=== PATIENT | male | born 1965 | race Two or more races ===

== ENCOUNTER 2017-11-28 14:04 | Inpatient (IN) | payer MEDICAID ==
[2017-11-28] VITALS (7 sets, daily range): BP systolic 111–139; BP diastolic 64–88
[~2017-11-28] VITALS: Ht 165.1 cm; Wt 64.0 kg
[2017-11-28] MEDS ORDERED: Thiamine HCl 100 MG in D5W 55 ML IVPB SCH (14:15)
[2017-11-28] MEDS ORDERED: HydrOXYzine tab 25 MG TAB ORAL ONE (14:15)
--- NOTE | 2017-11-28 14:17 | Emergency Room Report ---
History of Present Illness General Chief Complaint: General Complaint Source: Patient, EMS Present Illness HPI Patient is a 52-year-old male brought in by EMS after increased generalized weakness. Patient reports having several alcoholic drinks every day. The patient was found lying in the street. Patient stated that he had increased spinning sensation. He denies vomiting. He reports having generalized body itchiness. Allergies: Coded Allergies: No Known Allergies (Unverified , 11/28/17) Patient History Reviewed Nursing Documentation: PMH: Agreed; PSxH: Agreed Review of Systems All Other Systems: limited - by poor historian Physical Exam Vital Signs Date Time Temp Pulse Resp B/P (MAP) Pulse Ox O2 Delivery O2 Flow Rate FiO2 11/28/17 14:00 98.3 90 18 102/51 98 Room Air 98.2 Sp02 EP Interpretation: reviewed, normal General Appearance: normal inspection, well appearing, no apparent distress, alert, Chronically Ill Head: atraumatic ENT: normal ENT inspection, hearing grossly normal, normal voice Neck: normal inspection, full range of motion, supple, no bony tend Respiratory: normal inspection, lungs clear, normal breath sounds, no respiratory distress, no retraction, no wheezing Cardiovascular #1: regular rate, rhythm, no edema Gastrointestinal: normal inspection, normal bowel sounds, non tender, soft, no guarding, no hernia Genitourinary: no CVA tenderness Musculoskeletal: normal inspection, back normal, normal range of motion Neurologic: normal inspection, alert, responsive, speech normal Psychiatric: normal inspection, judgement/insight normal, mood/affect normal Skin: other - generalized excoriations Medical Decision Making Diagnostic Impression: Primary Impression: Generalized weakness Additional Impressions: Alcohol abuse Dermatitis ER Course Patient presented for generalized weakness. Differential diagnosis included was not limited to anemia, urinary tract infection, electrolyte abnormality, hypothyroidism, myocardial infarction, myasthenia gravis, dehydration, among others. Because of complexity of patient's case laboratory testing and imaging studies were ordered. The patient was given IV thiamine as well as Atarax for itching.The patient noted have markedly elevated blood alcohol level.Laboratory testing is notable for severe anemia. The patient is also noted to be thrombocytopenic as well as leukopenic.The patient's blood alcohol was noted to be markedly elevated. Patient was consented for blood due to severe anemia. Dr. Zach Silver was contacted for inpatient management Labs Test 11/28/17 15:00 White Blood Count 4.7 K/UL (4.8-10.8) Red Blood Count 2.68 M/UL (4.70-6.10) Hemoglobin 6.8 G/DL (14.2-18.0) Hematocrit 21.6 % (42.0-52.0) Mean Corpuscular Volume 81 FL (80-99) Mean Corpuscular Hemoglobin 25.5 PG (27.0-31.0) Mean Corpuscular Hemoglobin Concent 31.6 G/DL (32.0-36.0) Red Cell Distribution Width 18.2 % (11.6-14.8) Platelet Count 48 K/UL (150-450) Mean Platelet Volume 6.7 FL (6.5-10.1) Neutrophils (%) (Auto) % (45.0-75.0) Lymphocytes (%) (Auto) % (20.0-45.0) Monocytes (%) (Auto) % (1.0-10.0) Eosinophils (%) (Auto) % (0.0-3.0) Basophils (%) (Auto) % (0.0-2.0) Sodium Level 139 MMOL/L (136-145) Potassium Level 3.2 MMOL/L (3.5-5.1) Chloride Level 103 MMOL/L (98-107) Carbon Dioxide Level 24 MMOL/L (21-32) Anion Gap 12 mmol/L (5-15) Blood Urea Nitrogen 6 mg/dL (7-18) Creatinine 0.5 MG/DL (0.55-1.30) Estimat Glomerular Filtration Rate > 60 mL/min (>60) Glucose Level 107 MG/DL (74-106) Calcium Level 7.7 MG/DL (8.5-10.1) Total Bilirubin 0.7 MG/DL (0.2-1.0) Aspartate Amino Transf (AST/SGOT) 72 U/L (15-37) Alanine Aminotransferase (ALT/SGPT) 30 U/L (12-78) Alkaline Phosphatase 238 U/L (46-116) Total Protein 8.0 G/DL (6.4-8.2) Albumin 2.8 G/DL (3.4-5.0) Globulin 5.2 g/dL Albumin/Globulin Ratio 0.5 (1.0-2.7) Serum Alcohol 425 mg/dL EKG Diagnostic Results Rate: normal Rhythm: NSR ST Segments: no acute changes Last Vital Signs Date Time Temp Pulse Resp B/P (MAP) Pulse Ox O2 Delivery O2 Flow Rate FiO2 11/28/17 14:00 98.3 90 18 102/51 98 Room Air 98.2 Status: unchanged Disposition: ADMITTED INPATIENT Condition: Serious Enrico Wellington Nov 28, 2017 14:17
[2017-11-28 15:23] LABS: HEMATOCRIT 21.6 % (42.0-52.0); MEAN CORPUSCULAR VOLUME 81 FL (80-99); PLATELET COUNT 48 K/UL (150-450); RED BLOOD COUNT 2.68 M/UL (4.70-6.10); RED CELL DISTRIBUTION WIDTH 18.2 % (11.6-14.8); WHITE BLOOD COUNT 4.7 K/UL (4.8-10.8)
[2017-11-28 15:33] LABS: ANION GAP 12 mmol/L (5-15); BLOOD UREA NITROGEN 6 mg/dL (7-18); CALCIUM 7.7 MG/DL (8.5-10.1); CARBON DIOXIDE 24 MMOL/L (21-32); CHLORIDE 103 MMOL/L (98-107); CREATININE 0.5 MG/DL (0.55-1.30); POTASSIUM 3.2 MMOL/L (3.5-5.1); SODIUM 139 MMOL/L (136-145)
[2017-11-28 15:37] LABS: HEMOGLOBIN 6.8 G/DL (14.2-18.0)
[2017-11-28 15:39] LABS: ALANINE AMINOTRANSFERASE 30 U/L (12-78); ALBUMIN 2.8 G/DL (3.4-5.0); ALBUMIN/GLOBULIN RATIO 0.5 (1.0-2.7); ALKALINE PHOSPHATASE 238 U/L (46-116); ASPARTATE AMINO TRANSFERASE 72 U/L (15-37); BILIRUBIN,TOTAL 0.7 MG/DL (0.2-1.0)
[2017-11-28 16:11] LABS: HEMATOCRIT 21.9 % (42.0-52.0); MEAN CORPUSCULAR VOLUME 81 FL (80-99); PLATELET COUNT 47 K/UL (150-450); RED CELL DISTRIBUTION WIDTH 17.8 % (11.6-14.8)
[2017-11-28 16:42] LABS: HEMOGLOBIN 6.9 G/DL (14.2-18.0)
[2017-11-28] MEDS ORDERED: Morphine Sulfate 4mg/ml Inj IVP PRN (19:30)
[2017-11-28] MEDS ORDERED: Zolpidem 5mg tab ORAL PRN (19:30)
[2017-11-28] MEDS ORDERED: Mylanta II UD 30ml ORAL PRN (19:30)
[2017-11-28] MEDS ORDERED: Miralax 17gm pkt ORAL PRN (19:30)
[2017-11-28] MEDS: Heparin 5000 units/ml inj SUBQ SCH (21:00)
[2017-11-28] MEDS: Folic Acid 1 MG, Magnesium Sulfate 2,000 MG, Multivitamin - 12 Injection 10 ML in NS w/... IV SCH (21:40)
[2017-11-29] VITALS (7 sets, daily range): BP systolic 127–139; BP diastolic 71–83
[2017-11-29] MEDS: chlordiazePOXIDE 25mg Cap ORAL PRN (00:09)
--- NOTE | 2017-11-29 08:39 | Diagnostic Imaging Report ---
Indications: Altered mental status Technique: Spiral acquisitions obtained through the brain. Angled axial and coronal 5 x 5 mm slices were reconstructed. Total dose length product 1503.21 mGycm. CTDI vol(s) 70.38 mGy. Dose reduction achieved using automated exposure control Comparison: None. Findings: There is marked cerebral volume loss in the frontal regions bilaterally as well as in the posterior fossa. No acute intracranial hemorrhage or edema no mass effect or midline shift. Normal barclay-white differentiation. There is fairly extensive bilateral ethmoid sinus disease. Intact calvarium. Visualized orbits are unremarkable. Impression: Bifrontal cerebral and cerebellar volume loss, disproportionate to age Negative for acute intracranial bleed or mass effect Sinus disease This agrees with the preliminary interpretation provided overnight by [facility] teleradiology service. The CT scanner at [facility] is accredited by the [employer] and the scans are performed using protocols designed to limit radiation exposure to as low as reasonably achievable to attain images of sufficient resolution adequate for diagnostic evaluation.
[2017-11-29] MEDS: Heparin 5000 units/ml inj SUBQ SCH ×2 (09:00→20:50)
[2017-11-29 09:05] LABS: HEMATOCRIT 26.4 % (42.0-52.0); HEMOGLOBIN 8.6 G/DL (14.2-18.0); MEAN CORPUSCULAR VOLUME 83 FL (80-99); PLATELET COUNT 42 K/UL (150-450); RED BLOOD COUNT 3.18 M/UL (4.70-6.10); RED CELL DISTRIBUTION WIDTH 16.6 % (11.6-14.8); WHITE BLOOD COUNT 3.8 K/UL (4.8-10.8)
[2017-11-29 09:23] LABS: ALANINE AMINOTRANSFERASE 29 U/L (12-78); ALBUMIN 2.9 G/DL (3.4-5.0); ALBUMIN/GLOBULIN RATIO 0.5 (1.0-2.7); ALKALINE PHOSPHATASE 227 U/L (46-116); ANION GAP 9 mmol/L (5-15); ASPARTATE AMINO TRANSFERASE 69 U/L (15-37); BILIRUBIN,TOTAL 1.3 MG/DL (0.2-1.0); BLOOD UREA NITROGEN 5 mg/dL (7-18); CARBON DIOXIDE 26 MMOL/L (21-32); CHLORIDE 103 MMOL/L (98-107); CREATININE 0.5 MG/DL (0.55-1.30); POTASSIUM 3.2 MMOL/L (3.5-5.1); SODIUM 138 MMOL/L (136-145)
[2017-11-29 09:24] LABS: BILIRUBIN,DIRECT 0.5 MG/DL (0.0-0.3)
--- NOTE | 2017-11-29 12:00 | Consultation ---
History of Present Illness General Date patient seen: Nov 29, 2017 Chief Complaint: General Complaint Present Illness HPI 52-year-old male brought in by EMS from the street, with CC of increased generalized weakness. Patient reports having several alcoholic drinks every day. The patient was found lying in the street. His blood ETOH was >400. pt is admitted to telemetry acute etoh intoxication. Allergies: Coded Allergies: No Known Allergies (Unverified , 11/28/17) Patient History Healthcare decision maker Resuscitation status Full Code Advanced Directive on File Family History Family History: (1) Alcohol abuse Review of Systems All Other Systems: negative except mentioned in HPI Physical Exam General Appearance: WD/WN Lines, tubes and drains: peripheral HEENT: normocephalic, anicteric Neck: non-tender, normal alignment Respiratory/Chest: chest wall non-tender, lungs clear Abdomen: normal bowel sounds, non tender Genitourinary/Rectal: normal genital exam Extremities: normal range of motion, non-tender Skin Exam: warm/dry 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 Lymphatic: anterior cervical Last 24 Hour Vital Signs Date Time Temp Pulse Resp B/P (MAP) Pulse Ox O2 Delivery O2 Flow Rate FiO2 11/29/17 08:00 95 11/29/17 08:00 98.6 81 20 130/71 95 Room Air 98.6 11/29/17 04:00 70 11/29/17 03:57 97.9 82 20 139/82 98 Room Air 97.9 11/29/17 03:44 97.3 11/29/17 02:20 97.3 80 20 135/82 97 Room Air 97.3 11/29/17 02:05 98.4 88 20 129/80 96 Room Air 98.4 11/29/17 00:08 98.4 11/29/17 00:00 137 11/28/17 23:45 99.1 93 20 139/88 97 Room Air 99.1 11/28/17 22:33 99.5 11/28/17 20:00 97.3 82 20 114/64 96 Room Air 97.3 11/28/17 19:56 83 11/28/17 19:21 81 11/28/17 19:05 97.3 81 16 114/64 98 Room Air 97.3 11/28/17 19:00 98.2 83 14 119/76 97 Room Air 98.2 11/28/17 18:30 98.1 83 14 119/76 97 Room Air 98.1 11/28/17 17:06 98.2 83 14 119/76 97 Room Air 98.2 11/28/17 15:29 98.2 83 14 120/74 97 Room Air 98.2 11/28/17 14:10 98.2 86 16 111/70 96 Room Air 98.2 11/28/17 14:00 98.3 90 18 102/51 98 Room Air 98.2 Intake and Output 11/28/17 11/29/17 19:00 07:00 Intake Total 0 ml 2197.124 ml Output Total 1100 ml Balance 0 ml 1097.124 ml Intake Oral 0 ml 1600 ml IV Total 597.124 ml Output Urine Total 1100 ml # Voids 3 Laboratory Tests Test 11/28/17 15:00 11/28/17 15:55 11/29/17 07:30 White Blood Count 4.7 K/UL (4.8-10.8) L 4.0 K/UL (4.8-10.8) L 3.8 K/UL (4.8-10.8) L Red Blood Count 2.68 M/UL (4.70-6.10) L 2.70 M/UL (4.70-6.10) L 3.18 M/UL (4.70-6.10) L Hemoglobin 6.8 G/DL (14.2-18.0) *L 6.9 G/DL (14.2-18.0) *L 8.6 G/DL (14.2-18.0) L Hematocrit 21.6 % (42.0-52.0) L 21.9 % (42.0-52.0) L 26.4 % (42.0-52.0) L Mean Corpuscular Volume 81 FL (80-99) 81 FL (80-99) 83 FL (80-99) Mean Corpuscular Hemoglobin 25.5 PG (27.0-31.0) L 25.5 PG (27.0-31.0) L 27.1 PG (27.0-31.0) Mean Corpuscular Hemoglobin Concent 31.6 G/DL (32.0-36.0) L 31.5 G/DL (32.0-36.0) L 32.6 G/DL (32.0-36.0) Red Cell Distribution Width 18.2 % (11.6-14.8) H 17.8 % (11.6-14.8) H 16.6 % (11.6-14.8) H Platelet Count 48 K/UL (150-450) L 47 K/UL (150-450) L 42 K/UL (150-450) L Mean Platelet Volume 6.7 FL (6.5-10.1) 7.3 FL (6.5-10.1) 7.1 FL (6.5-10.1) Neutrophils (%) (Auto) % (45.0-75.0) % (45.0-75.0) % (45.0-75.0) Lymphocytes (%) (Auto) % (20.0-45.0) % (20.0-45.0) % (20.0-45.0) Monocytes (%) (Auto) % (1.0-10.0) % (1.0-10.0) % (1.0-10.0) Eosinophils (%) (Auto) % (0.0-3.0) % (0.0-3.0) % (0.0-3.0) Basophils (%) (Auto) % (0.0-2.0) % (0.0-2.0) % (0.0-2.0) Differential Total Cells Counted 100 100 100 Neutrophils % (Manual) 34 % (45-75) L 38 % (45-75) L 63 % (45-75) Lymphocytes % (Manual) 40 % (20-45) 40 % (20-45) 20 % (20-45) Monocytes % (Manual) 7 % (1-10) 6 % (1-10) 10 % (1-10) Eosinophils % (Manual) 16 % (0-3) H 14 % (0-3) H 7 % (0-3) H Basophils % (Manual) 3 % (0-2) H 2 % (0-2) 0 % (0-2) Band Neutrophils 0 % (0-8) 0 % (0-8) 0 % (0-8) Platelet Estimate Decreased L Decreased L Decreased L Platelet Morphology Normal Normal Normal Hypochromasia 3+ 3+ 2+ Anisocytosis 2+ 2+ 1+ Microcytosis 2+ 3+ Sodium Level 139 MMOL/L (136-145) 138 MMOL/L (136-145) Potassium Level 3.2 MMOL/L (3.5-5.1) L 3.2 MMOL/L (3.5-5.1) L Chloride Level 103 MMOL/L (98-107) 103 MMOL/L (98-107) Carbon Dioxide Level 24 MMOL/L (21-32) 26 MMOL/L (21-32) Anion Gap 12 mmol/L (5-15) 9 mmol/L (5-15) Blood Urea Nitrogen 6 mg/dL (7-18) L 5 mg/dL (7-18) L Creatinine 0.5 MG/DL (0.55-1.30) L 0.5 MG/DL (0.55-1.30) L Estimat Glomerular Filtration Rate > 60 mL/min (>60) > 60 mL/min (>60) Glucose Level 107 MG/DL (74-106) H 111 MG/DL (74-106) H Calcium Level 7.7 MG/DL (8.5-10.1) L 8.0 MG/DL (8.5-10.1) L Total Bilirubin 0.7 MG/DL (0.2-1.0) 1.3 MG/DL (0.2-1.0) H Aspartate Amino Transf (AST/SGOT) 72 U/L (15-37) H 69 U/L (15-37) H Alanine Aminotransferase (ALT/SGPT) 30 U/L (12-78) 29 U/L (12-78) Alkaline Phosphatase 238 U/L (46-116) H 227 U/L (46-116) H Total Protein 8.0 G/DL (6.4-8.2) 8.2 G/DL (6.4-8.2) Albumin 2.8 G/DL (3.4-5.0) L 2.9 G/DL (3.4-5.0) L Globulin 5.2 g/dL 5.3 g/dL Albumin/Globulin Ratio 0.5 (1.0-2.7) L 0.5 (1.0-2.7) L Serum Alcohol 425 mg/dL Direct Bilirubin 0.5 MG/DL (0.0-0.3) H Height (Feet): 5 Height (Inches): 5.00 Weight (Pounds): 141 Medications Current Medications Medications (Trade) Dose Ordered Sig/Jv Route PRN Reason Start Time Stop Time Status Last Admin Dose Admin Acetaminophen (Tylenol) 650 mg Q4H PRN ORAL fever 11/28/17 19:30 12/28/17 19:29 11/28/17 22:33 Al Hydroxide/Mg Hydroxide (Mylanta II) 30 ml Q6H PRN ORAL dyspepsia 11/28/17 19:30 12/28/17 19:29 Chlordiazepoxide (Librium) 25 mg Q6H PRN ORAL Agitation 11/28/17 19:30 12/05/17 19:29 11/29/17 00:09 Dextrose (Dextrose 50%) STAT PRN IV Hypoglycemia 11/28/17 19:30 12/28/17 19:29 Folic Acid 1 mg/ Magnesium Sulfate 2000 mg/ Multivitamins 10 ml/Sodium Chloride 1,014.2 ml @ 124.876 mls/hr Q24H IV 11/28/17 21:00 12/28/17 20:59 11/28/17 21:40 Heparin Sodium (Porcine) (Heparin 5000 units/ml) 5,000 units EVERY 12 HOURS SUBQ 11/28/17 21:00 12/28/17 20:59 Lorazepam (Ativan 2mg/ml 1ml) 2 mg Q1H PRN IV seizures 11/28/17 19:30 12/05/17 19:29 Morphine Sulfate (Morphine Sulfate) 1 mg Q4H PRN IVP For Pain 11/28/17 19:30 12/05/17 19:29 11/29/17 03:44 Ondansetron HCl (Zofran) 4 mg Q6H PRN IVP Nausea & Vomiting 11/28/17 19:30 12/28/17 19:29 11/29/17 03:44 Polyethylene Glycol (Miralax) 17 gm HSPRN PRN ORAL Constipation 11/28/17 19:30 12/28/17 19:29 Thiamine HCl 100 mg/Sodium Chloride 56 ml @ 112 mls/hr Q24H IVPB 4/16/18 21:00 12/29/17 20:59 Zolpidem Tartrate (Ambien) 5 mg HSPRN PRN ORAL Insomnia 11/28/17 19:30 12/05/17 19:29 Assessment/Plan Problem List: (1) Alcohol intoxication ICD Codes: F10.929 - Alcohol use, unspecified with intoxication, unspecified SNOMED: 48806553 (2) Anemia ICD Codes: D64.9 - Anemia, unspecified SNOMED: 696255085 (3) Generalized weakness ICD Codes: R53.1 - Weakness SNOMED: 59510890 Assessment/Plan feeling better s/p two units of prbc Nas Robbins MD Nov 29, 2017 12:00
--- NOTE | 2017-11-29 13:08 | History & Physical ---
History and Physical History & Physicial Dictated for Int Med-Dr Silver no. [id number] ROSALES REYES Nov 29, 2017 13:08
[2017-11-29] MEDS ORDERED: UNOBMED (15:49)
--- NOTE | 2017-11-29 15:52 | GI Initial Consult Note ---
History of Present Illness General Date patient seen: Nov 29, 2017 Time patient seen: 15:45 Reason for Hospitalization: General Complaint Referring physician: DANNIELLE HENNING Reason for Consultation: ANEMIA Present Illness HPI Patient is a 52-year-old male brought in by EMS after increased generalized weakness. Patient reports having several alcoholic drinks every day. The patient was found lying in the street. Patient stated that he had increased spinning sensation. He denies vomiting. He reports having generalized body itchiness. GI consulted for anemia. Pt seen, awake A&O noted with tremors and agitation. History of alcohol abuse, presents with serum alcohol level over 400. Labs reviewed patient to be pancytopenic and abnormal LFTs. The patient states he has had endoscopy/colonoscopy prior, but unable to recall exact time and location. He is a poor historian. Noted with scabies. Home Meds Reported Medications Unable to Obtain Medications (UNABLE TO OBTAIN MEDS) Unknown Strength Ea 11/29/17 Med list reviewed/reconciled: Yes Allergies: Coded Allergies: No Known Allergies (Unverified , 11/28/17) Patient History Limited by: medical condition History Provided By: Patient PMH Narrative Alcohol abuse Social History: Reports: alcohol use Review of Systems All Other Systems: negative except mentioned in HPI Physical Exam Vital Signs Date Time Temp Pulse Resp B/P (MAP) Pulse Ox O2 Delivery O2 Flow Rate FiO2 11/28/17 14:00 98.3 90 18 102/51 98 Room Air 98.2 Sp02 EP Interpretation: reviewed, normal Labs Laboratory Tests Test 11/28/17 15:55 11/29/17 07:30 White Blood Count 4.0 K/UL (4.8-10.8) L 3.8 K/UL (4.8-10.8) L Red Blood Count 2.70 M/UL (4.70-6.10) L 3.18 M/UL (4.70-6.10) L Hemoglobin 6.9 G/DL (14.2-18.0) *L 8.6 G/DL (14.2-18.0) L Hematocrit 21.9 % (42.0-52.0) L 26.4 % (42.0-52.0) L Mean Corpuscular Volume 81 FL (80-99) 83 FL (80-99) Mean Corpuscular Hemoglobin 25.5 PG (27.0-31.0) L 27.1 PG (27.0-31.0) Mean Corpuscular Hemoglobin Concent 31.5 G/DL (32.0-36.0) L 32.6 G/DL (32.0-36.0) Red Cell Distribution Width 17.8 % (11.6-14.8) H 16.6 % (11.6-14.8) H Platelet Count 47 K/UL (150-450) L 42 K/UL (150-450) L Mean Platelet Volume 7.3 FL (6.5-10.1) 7.1 FL (6.5-10.1) Neutrophils (%) (Auto) % (45.0-75.0) % (45.0-75.0) Lymphocytes (%) (Auto) % (20.0-45.0) % (20.0-45.0) Monocytes (%) (Auto) % (1.0-10.0) % (1.0-10.0) Eosinophils (%) (Auto) % (0.0-3.0) % (0.0-3.0) Basophils (%) (Auto) % (0.0-2.0) % (0.0-2.0) Differential Total Cells Counted 100 100 Neutrophils % (Manual) 38 % (45-75) L 63 % (45-75) Lymphocytes % (Manual) 40 % (20-45) 20 % (20-45) Monocytes % (Manual) 6 % (1-10) 10 % (1-10) Eosinophils % (Manual) 14 % (0-3) H 7 % (0-3) H Basophils % (Manual) 2 % (0-2) 0 % (0-2) Band Neutrophils 0 % (0-8) 0 % (0-8) Platelet Estimate Decreased L Decreased L Platelet Morphology Normal Normal Hypochromasia 3+ 2+ Anisocytosis 2+ 1+ Microcytosis 3+ Sodium Level 138 MMOL/L (136-145) Potassium Level 3.2 MMOL/L (3.5-5.1) L Chloride Level 103 MMOL/L (98-107) Carbon Dioxide Level 26 MMOL/L (21-32) Anion Gap 9 mmol/L (5-15) Blood Urea Nitrogen 5 mg/dL (7-18) L Creatinine 0.5 MG/DL (0.55-1.30) L Estimat Glomerular Filtration Rate > 60 mL/min (>60) Glucose Level 111 MG/DL (74-106) H Calcium Level 8.0 MG/DL (8.5-10.1) L Total Bilirubin 1.3 MG/DL (0.2-1.0) H Direct Bilirubin 0.5 MG/DL (0.0-0.3) H Aspartate Amino Transf (AST/SGOT) 69 U/L (15-37) H Alanine Aminotransferase (ALT/SGPT) 29 U/L (12-78) Alkaline Phosphatase 227 U/L (46-116) H Total Protein 8.2 G/DL (6.4-8.2) Albumin 2.9 G/DL (3.4-5.0) L Globulin 5.3 g/dL Albumin/Globulin Ratio 0.5 (1.0-2.7) L General Appearance: well appearing, no apparent distress, alert Head: normocephalic EENT: PERRL/EOMI, normal ENT inspection Neck: supple Respiratory: normal breath sounds, no respiratory distress Cardiovascular: normal rate Gastrointestinal: normal inspection, non tender, soft, normal bowel sounds, non -distended Rectal: deferred Genitourinary: deferred Musculoskeletal: normal inspection, back normal Neurologic: normal inspection, alert, oriented x3, responsive Psychiatric: normal inspection, judgement/insight normal, memory normal Skin: normal inspection, normal color, warm/dry, palpation normal, well hydrated, rash, other - scabies Lymphatic: normal inspection, no adenopathy Current Medications Current Medications Medications (Trade) Dose Ordered Sig/Jv Route PRN Reason Start Time Stop Time Status Last Admin Dose Admin Acetaminophen (Tylenol) 650 mg Q4H PRN ORAL fever 11/28/17 19:30 12/28/17 19:29 11/28/17 22:33 Al Hydroxide/Mg Hydroxide (Mylanta II) 30 ml Q6H PRN ORAL dyspepsia 11/28/17 19:30 12/28/17 19:29 Chlordiazepoxide (Librium) 25 mg Q6H PRN ORAL Agitation 11/28/17 19:30 12/05/17 19:29 11/29/17 00:09 Dextrose (Dextrose 50%) STAT PRN IV Hypoglycemia 11/28/17 19:30 12/28/17 19:29 Folic Acid 1 mg/ Magnesium Sulfate 2000 mg/ Multivitamins 10 ml/Sodium Chloride 1,014.2 ml @ 124.876 mls/hr Q24H IV 11/28/17 21:00 12/28/17 20:59 11/28/17 21:40 Heparin Sodium (Porcine) (Heparin 5000 units/ml) 5,000 units EVERY 12 HOURS SUBQ 11/28/17 21:00 12/28/17 20:59 Lorazepam (Ativan 2mg/ml 1ml) 2 mg Q1H PRN IV seizures 11/28/17 19:30 12/05/17 19:29 Morphine Sulfate (Morphine Sulfate) 1 mg Q4H PRN IVP For Pain 11/28/17 19:30 12/05/17 19:29 11/29/17 03:44 Ondansetron HCl (Zofran) 4 mg Q6H PRN IVP Nausea & Vomiting 11/28/17 19:30 12/28/17 19:29 11/29/17 03:44 Polyethylene Glycol (Miralax) 17 gm HSPRN PRN ORAL Constipation 11/28/17 19:30 12/28/17 19:29 Thiamine HCl 100 mg/Sodium Chloride 56 ml @ 112 mls/hr Q24H IVPB 11/29/17 21:00 12/29/17 20:59 Zolpidem Tartrate (Ambien) 5 mg HSPRN PRN ORAL Insomnia 11/28/17 19:30 12/05/17 19:29 GI: Plan Problems: (1) Pancytopenia (2) Scabies (3) Alcohol intoxication delirium (4) Anemia (5) Dermatitis (6) Generalized weakness Plan ETOH withdrawal management - IV/PO hydration - banana bag - Ativan prn anemia work up OB stool r/o GI bleed monitor H&H, prn transfusions bowel regime ok to advance diet ppi fu labs, trend LFTs contact for scabies Discussed with Dr. Danielson. Thank you for this patient referral, we will follow. Suzanne Portillo N.P. Nov 29, 2017 15:52
[2017-11-29] MEDS ORDERED: LORazepam Inj 2mg/ml 1ml IV PRN (16:00)
[2017-11-29] MEDS: Folic Acid 1 MG, Magnesium Sulfate 2,000 MG, Multivitamin - 12 Injection 10 ML in NS w/... IV SCH (20:09)
[2017-11-29] MEDS: Thiamine 100mg in D5W 55ml IVPB SCH (20:10)
--- NOTE | 2017-11-29 21:22 | Cardiology Report ---
APPROVED REPORT EKG Measurement Heart [id number] Normal sinus rhythm Rightward axis Borderline ECG
--- NOTE | 2017-11-29 22:15 | History and Physical Report ---
DATE OF ADMISSION: 11/29/2017 CHIEF COMPLAINT: The patient is a 52-year-old male, who presents with a chief complaint of "I was intoxicated." HISTORY OF PRESENT ILLNESS: The patient apparently is homeless. The patient was found by EMS lying on the street. The patient states he was weak. The patient had nausea without vomiting. The patient presented to [place] emergency room. The patient was found to have hemoglobin of 6.8. The patient was admitted for severe anemia to rule out GI bleed. PAST MEDICAL HISTORY: The patient denies. PAST SURGICAL HISTORY: The patient denies. CURRENT MEDICATIONS: The patient denies. ALLERGIES: No known drug allergies. SOCIAL HISTORY: The patient is currently homeless. The patient denies tobacco use. The patient admits to alcohol use of 3 beers daily. The patient last drank yesterday, 11/28/2017. REVIEW OF SYSTEMS: CONSTITUTIONAL: The patient denies weight loss or weight gain. The patient denies fevers or chills. HEENT: The patient denies ear or throat pain. The patient denies headache. CARDIOVASCULAR: The patient denies palpitations or chest pain. CHEST: The patient denies wheeze or shortness of breath. ABDOMEN: The patient complains of nausea as above. The patient denies vomiting, diarrhea, or constipation. GENITOURINARY: The patient denies dysuria or increased frequency of urination. NEUROMUSCULAR: The patient denies seizures or generalized weakness. PHYSICAL EXAMINATION: VITAL SIGNS: Temperature 97.3, respirations 20, pulse 80, and blood pressure 135/82. GENERAL: The patient is a well-developed and well-nourished male, who is tremulous. HEENT: Eyes, pupils equal and responsive to light and accommodation. Extraocular movements are intact. NECK: Supple without lymphadenopathy. CHEST: Lungs are clear to auscultation bilaterally without wheezes or rales. CARDIOVASCULAR: Regular rhythm and rate. S1 and S2 are normal without murmurs, rubs, or gallops. LUNGS: Soft, nontender, and nondistended. Positive bowel sounds. No evidence of hepatosplenomegaly. Currently, no rebound or guarding noted. EXTREMITIES: Negative for clubbing, cyanosis, or edema. RECTAL/GENITAL: Deferred. NEUROLOGIC: The patient does have resting tremors. LABORATORY STUDIES: WBC 4.7, hemoglobin 6.8, hematocrit 21.6, and platelets 48,000. Sodium 139, potassium 3.2, chloride 103, CO2 of 24, BUN 6, creatinine 0.5, and glucose 107. Serum alcohol level was 425. ASSESSMENT: This is a 52-year-old male. 1. Anemia. 2. Acute alcohol intoxication. 3. Alcohol dependence. 4. . TREATMENT: 1. Anemia. The patient has received 2 units of packed RBCs. A repeat CBC is pending. Anemia is concerning chronic alcoholism for possible GI bleed. A Gastroenterology consultation has been obtained with Dr. Brennen Danielson. 2. Acute intoxication. 3. Tremors. This is probably secondary to acute alcohol withdrawal. Leonardo Brown M.D. DR: SEN JOB#: [id number] CC:
[2017-11-30] VITALS: BP 135/75
[2017-11-30 04:00] VITALS: BP 117/64
[2017-11-30 08:00] VITALS: BP 131/79
[2017-11-30] MEDS ORDERED: Tubing IV Secondary IV ONE (08:55)
[2017-11-30] MEDS ORDERED: NS 275ml ONE (08:55)
[2017-11-30] MEDS ORDERED: Tubing IV Blood Pump IV ONE (08:55)
[2017-11-30] MEDS: Heparin 5000 units/ml inj SUBQ SCH ×2 (09:00→21:00)
[2017-11-30 09:33] LABS: HEMATOCRIT 26.7 % (42.0-52.0); HEMOGLOBIN 8.8 G/DL (14.2-18.0); MEAN CORPUSCULAR VOLUME 83 FL (80-99); PLATELET COUNT 51 K/UL (150-450); RED BLOOD COUNT 3.21 M/UL (4.70-6.10); RED CELL DISTRIBUTION WIDTH 17.5 % (11.6-14.8); WHITE BLOOD COUNT 3.8 K/UL (4.8-10.8)
[2017-11-30 09:55] LABS: INR 1.2 (0.9-1.1)
[2017-11-30 10:13] LABS: ALANINE AMINOTRANSFERASE 27 U/L (12-78); ALBUMIN 2.8 G/DL (3.4-5.0); ALBUMIN/GLOBULIN RATIO 0.5 (1.0-2.7); ALKALINE PHOSPHATASE 228 U/L (46-116); ANION GAP 7 mmol/L (5-15); ASPARTATE AMINO TRANSFERASE 58 U/L (15-37); BILIRUBIN,TOTAL 1.4 MG/DL (0.2-1.0); BLOOD UREA NITROGEN 5 mg/dL (7-18); CALCIUM 8.4 MG/DL (8.5-10.1); CARBON DIOXIDE 25 MMOL/L (21-32); CHLORIDE 102 MMOL/L (98-107); CREATININE 0.6 MG/DL (0.55-1.30); FERRITIN 20 NG/ML (8-388); PHOSPHORUS 2.8 MG/DL (2.5-4.9); POTASSIUM 3.6 MMOL/L (3.5-5.1); SODIUM 134 MMOL/L (136-145)
[2017-11-30 10:18] LABS: BILIRUBIN,DIRECT 0.6 MG/DL (0.0-0.3)
[2017-11-30 10:43] LABS: % IRON SATURATION 17 % (15-50); IRON 56 ug/dL (50-175); TOTAL IRON BINDING CAPACITY 329 ug/dL (250-450)
[2017-11-30 12:00] VITALS: BP 138/86
--- NOTE | 2017-11-30 13:13 | Pulmonology Progress Note ---
Assessment/Plan Problems: (1) Low grade fever (2) Alcohol intoxication (3) Anemia (4) Scabies (5) Poor hygiene (6) Generalized weakness Assessment/Plan pacheco culture ID evaluation start zosyn US of abdomen Ivermectin po Subjective ROS Limited/Unobtainable: No Constitutional: Reports: no symptoms HEENT: Repors: no symptoms Respiratory: Reports: no symptoms Allergies: Coded Allergies: No Known Allergies (Unverified , 11/28/17) Objective Last 24 Hour Vital Signs Date Time Temp Pulse Resp B/P (MAP) Pulse Ox O2 Delivery O2 Flow Rate FiO2 11/30/17 08:00 100.0 75 18 131/79 99 Room Air 100.0 11/30/17 04:00 75 11/30/17 04:00 99.1 77 18 117/64 98 Room Air 99.1 11/30/17 00:00 74 11/30/17 00:00 99.1 72 18 135/75 99 Room Air 99.1 11/29/17 22:31 99.5 11/29/17 21:32 100.9 11/29/17 20:00 78 11/29/17 20:00 66 11/29/17 20:00 100.9 72 18 127/81 97 Room Air 100.9 11/29/17 16:00 66 11/29/17 16:00 98.0 65 18 130/72 98 Room Air 98.0 Intake and Output 11/29/17 11/30/17 19:00 07:00 Intake Total 1048.2 ml 240 ml Output Total 1300 ml 1650 ml Balance -251.8 ml -1410 ml Intake Oral 700 ml 240 ml IV Total 348.2 ml Output Urine Total 1300 ml 1650 ml # Bowel Movements 1 2 Objective bed smell filled up the smell General Appearance: WD/WN HEENT: normocephalic Respiratory/Chest: chest wall non-tender, lungs clear Cardiovascular: normal peripheral pulses, normal rate Abdomen: normal bowel sounds, soft, non tender Genitourinary: normal external genitalia Extremities: no cyanosis Skin: no rash 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 Laboratory Tests 11/29/17 20:00: Stool Occult Blood Negative 11/30/17 08:50: White Blood Count 3.8L, Red Blood Count 3.21L, Hemoglobin 8.8L, Hematocrit 26.7L , Mean Corpuscular Volume 83, Mean Corpuscular Hemoglobin 27.5, Mean Corpuscular Hemoglobin Concent 33.2, Red Cell Distribution Width 17.5H, Platelet Count 51L, Mean Platelet Volume 10.3H, Neutrophils (%) (Auto) , Lymphocytes (%) (Auto) , Monocytes (%) (Auto) , Eosinophils (%) (Auto) , Basophils (%) (Auto) , Differential Total Cells Counted 100, Neutrophils % ( Manual) 62, Lymphocytes % (Manual) 13L, Monocytes % (Manual) 9, Eosinophils % ( Manual) 14H, Basophils % (Manual) 0, Band Neutrophils 2, Platelet Estimate DecreasedL, Platelet Morphology Normal, Polychromasia 1+, Hypochromasia 2+, Anisocytosis 1+, Reticulocyte Count 2.2H, Prothrombin Time 12.7H, Prothromb Time International Ratio 1.2H, Activated Partial Thromboplast Time 30, Sodium Level 134L, Potassium Level 3.6, Chloride Level 102, Carbon Dioxide Level 25, Anion Gap 7, Blood Urea Nitrogen 5L, Creatinine 0.6, Estimat Glomerular Filtration Rate > 60, Glucose Level 101, Calcium Level 8.4L, Phosphorus Level 2.8, Magnesium Level 1.9, Iron Level 56, Total Iron Binding Capacity 329, Percent Iron Saturation 17, Unsaturated Iron Binding 273, Ferritin 20, Total Bilirubin 1.4H, Direct Bilirubin 0.6H, Aspartate Amino Transf (AST/SGOT) 58H, Alanine Aminotransferase (ALT/SGPT) 27, Alkaline Phosphatase 228H, Total Protein 8.3H, Albumin 2.8L, Globulin 5.5, Albumin/Globulin Ratio 0.5L, Vitamin B12 Level 1139H, Folate 15.3, Thyroid Stimulating Hormone (TSH) 2.008, Free Thyroxine 1.22 Current Medications Medications (Trade) Dose Ordered Sig/Jv Route PRN Reason Start Time Stop Time Status Last Admin Dose Admin Acetaminophen (Tylenol) 650 mg Q4H PRN ORAL fever 11/28/17 19:30 12/28/17 19:29 11/29/17 21:32 Al Hydroxide/Mg Hydroxide (Mylanta II) 30 ml Q6H PRN ORAL dyspepsia 11/28/17 19:30 12/28/17 19:29 Chlordiazepoxide (Librium) 25 mg Q6H PRN ORAL Agitation 11/28/17 19:30 12/05/17 19:29 11/29/17 00:09 Dextrose (Dextrose 50%) STAT PRN IV Hypoglycemia 11/28/17 19:30 12/28/17 19:29 Folic Acid 1 mg/ Magnesium Sulfate 2000 mg/ Multivitamins 10 ml/Sodium Chloride 1,014.2 ml @ 124.876 mls/hr Q24H IV 11/28/17 21:00 12/28/17 20:59 11/29/17 20:09 Heparin Sodium (Porcine) (Heparin 5000 units/ml) 5,000 units EVERY 12 HOURS SUBQ 11/28/17 21:00 12/28/17 20:59 Lorazepam (Ativan 2mg/ml 1ml) 1 mg Q4H PRN IV For Anxiety 11/29/17 16:00 12/06/17 15:59 11/29/17 18:50 Lorazepam (Ativan 2mg/ml 1ml) 2 mg Q1H PRN IV seizures 11/28/17 19:30 12/05/17 19:29 Morphine Sulfate (Morphine Sulfate) 1 mg Q4H PRN IVP For Pain 11/28/17 19:30 12/05/17 19:29 11/29/17 03:44 Multivitamins (Multivitamins) 1 tab DAILY ORAL 11/30/17 09:00 12/30/17 08:59 11/30/17 09:11 Ondansetron HCl (Zofran) 4 mg Q6H PRN IVP Nausea & Vomiting 11/28/17 19:30 12/28/17 19:29 11/29/17 03:44 Polyethylene Glycol (Miralax) 17 gm HSPRN PRN ORAL Constipation 11/28/17 19:30 12/28/17 19:29 Thiamine HCl 100 mg/Sodium Chloride 56 ml @ 112 mls/hr Q24H IVPB 11/29/17 21:00 12/29/17 20:59 11/29/17 20:10 Zolpidem Tartrate (Ambien) 5 mg HSPRN PRN ORAL Insomnia 11/28/17 19:30 12/05/17 19:29 Nas Robbins MD Nov 30, 2017 13:13
[2017-11-30] MEDS ORDERED: Piperacillin/Tazobactam 3.375 GM in NS 110 ML IVPB SCH (14:00)
--- NOTE | 2017-11-30 14:10 | GI Progress Note ---
Assessment/Plan Problems: (1) Pancytopenia ICD Codes: D61.818 - Other pancytopenia SNOMED: 808588069 (2) Scabies ICD Codes: B86 - Scabies SNOMED: 88112588, 074554443 (3) Anemia ICD Codes: D64.9 - Anemia, unspecified SNOMED: 527687463 (4) Alcohol intoxication delirium ICD Codes: F10.121 - Alcohol abuse with intoxication delirium SNOMED: 38635786 (5) Generalized weakness ICD Codes: R53.1 - Weakness SNOMED: 86044687 (6) Poor hygiene ICD Codes: R46.0 - Very low level of personal hygiene SNOMED: 213902582 Status: unchanged Status Narrative Discussed with Dr. Danielson. Assessment/Plan anemia work up reviewed OB stool negative ETOH withdrawal management - IV/PO hydration - banana bag - Ativan prn monitor H&H, prn transfusions bowel regime fu abdominal US ppi fu labs, trend LFTs contact for scabies Subjective Subjective itchy Objective Last 24 Hour Vital Signs Date Time Temp Pulse Resp B/P (MAP) Pulse Ox O2 Delivery O2 Flow Rate FiO2 11/30/17 08:00 100.0 75 18 131/79 99 Room Air 100.0 11/30/17 04:00 75 11/30/17 04:00 99.1 77 18 117/64 98 Room Air 99.1 11/30/17 00:00 74 11/30/17 00:00 99.1 72 18 135/75 99 Room Air 99.1 11/29/17 22:31 99.5 11/29/17 21:32 100.9 11/29/17 20:00 78 11/29/17 20:00 66 11/29/17 20:00 100.9 72 18 127/81 97 Room Air 100.9 11/29/17 16:00 66 11/29/17 16:00 98.0 65 18 130/72 98 Room Air 98.0 Intake and Output 11/29/17 11/30/17 19:00 07:00 Intake Total 1048.2 ml 240 ml Output Total 1300 ml 1650 ml Balance -251.8 ml -1410 ml Intake Oral 700 ml 240 ml IV Total 348.2 ml Output Urine Total 1300 ml 1650 ml # Bowel Movements 1 2 Laboratory Tests Test 11/29/17 20:00 11/30/17 08:50 Stool Occult Blood Negative (NEGATIVE) White Blood Count 3.8 K/UL (4.8-10.8) L Red Blood Count 3.21 M/UL (4.70-6.10) L Hemoglobin 8.8 G/DL (14.2-18.0) L Hematocrit 26.7 % (42.0-52.0) L Mean Corpuscular Volume 83 FL (80-99) Mean Corpuscular Hemoglobin 27.5 PG (27.0-31.0) Mean Corpuscular Hemoglobin Concent 33.2 G/DL (32.0-36.0) Red Cell Distribution Width 17.5 % (11.6-14.8) H Platelet Count 51 K/UL (150-450) L Mean Platelet Volume 10.3 FL (6.5-10.1) H Neutrophils (%) (Auto) % (45.0-75.0) Lymphocytes (%) (Auto) % (20.0-45.0) Monocytes (%) (Auto) % (1.0-10.0) Eosinophils (%) (Auto) % (0.0-3.0) Basophils (%) (Auto) % (0.0-2.0) Differential Total Cells Counted 100 Neutrophils % (Manual) 62 % (45-75) Lymphocytes % (Manual) 13 % (20-45) L Monocytes % (Manual) 9 % (1-10) Eosinophils % (Manual) 14 % (0-3) H Basophils % (Manual) 0 % (0-2) Band Neutrophils 2 % (0-8) Platelet Estimate Decreased L Platelet Morphology Normal Polychromasia 1+ Hypochromasia 2+ Anisocytosis 1+ Reticulocyte Count 2.2 % (0.0-2.0) H Prothrombin Time 12.7 SEC (9.30-11.50) H Prothromb Time International Ratio 1.2 (0.9-1.1) H Activated Partial Thromboplast Time 30 SEC (23-33) Sodium Level 134 MMOL/L (136-145) L Potassium Level 3.6 MMOL/L (3.5-5.1) Chloride Level 102 MMOL/L (98-107) Carbon Dioxide Level 25 MMOL/L (21-32) Anion Gap 7 mmol/L (5-15) Blood Urea Nitrogen 5 mg/dL (7-18) L Creatinine 0.6 MG/DL (0.55-1.30) Estimat Glomerular Filtration Rate > 60 mL/min (>60) Glucose Level 101 MG/DL (74-106) Calcium Level 8.4 MG/DL (8.5-10.1) L Phosphorus Level 2.8 MG/DL (2.5-4.9) Magnesium Level 1.9 MG/DL (1.8-2.4) Iron Level 56 ug/dL (50-175) Total Iron Binding Capacity 329 ug/dL (250-450) Percent Iron Saturation 17 % (15-50) Unsaturated Iron Binding 273 ug/dL (112-346) Ferritin 20 NG/ML (8-388) Total Bilirubin 1.4 MG/DL (0.2-1.0) H Direct Bilirubin 0.6 MG/DL (0.0-0.3) H Aspartate Amino Transf (AST/SGOT) 58 U/L (15-37) H Alanine Aminotransferase (ALT/SGPT) 27 U/L (12-78) Alkaline Phosphatase 228 U/L (46-116) H Total Protein 8.3 G/DL (6.4-8.2) H Albumin 2.8 G/DL (3.4-5.0) L Globulin 5.5 g/dL Albumin/Globulin Ratio 0.5 (1.0-2.7) L Vitamin B12 Level 1139 PG/ML (193-986) H Folate 15.3 NG/ML (8.6-58.9) Thyroid Stimulating Hormone (TSH) 2.008 uiU/mL (0.358-3.740) Free Thyroxine 1.22 NG/DL (0.76-1.46) Height (Feet): 5 Height (Inches): 5.00 Weight (Pounds): 141 General Appearance: WD/WN, no apparent distress, alert Cardiovascular: normal rate Respiratory/Chest: normal breath sounds, no respiratory distress Abdominal Exam: normal bowel sounds, non tender, soft Extremities: normal range of motion, non-tender Suzanne Portillo N.P. Nov 30, 2017 14:10
[2017-11-30] MEDS: LORazepam Inj 2mg/ml 1ml IV PRN ×2 (14:59→22:09)
--- NOTE | 2017-11-30 15:08 | Diagnostic Imaging Report ---
Indication: Cough Technique: One view of the chest Comparison: none Findings: Lungs and pleural spaces are clear. The heart size is normal. Impression: Negative
[2017-11-30 16:00] VITALS: BP 139/94
--- NOTE | 2017-11-30 16:05 | Internal Med Progress Note ---
Subjective Date of Service: Nov 30, 2017 Physician Name BrownRosales toscano Attending Physician Zach Silver MD Current Medications Medications (Trade) Dose Ordered Sig/Jv Route PRN Reason Start Time Stop Time Status Last Admin Dose Admin Acetaminophen (Tylenol) 650 mg Q4H PRN ORAL fever 11/28/17 19:30 12/28/17 19:29 11/29/17 21:32 Al Hydroxide/Mg Hydroxide (Mylanta II) 30 ml Q6H PRN ORAL dyspepsia 11/28/17 19:30 12/28/17 19:29 Chlordiazepoxide (Librium) 25 mg Q6H PRN ORAL Agitation 11/28/17 19:30 12/05/17 19:29 11/29/17 00:09 Dextrose (Dextrose 50%) STAT PRN IV Hypoglycemia 11/28/17 19:30 12/28/17 19:29 Folic Acid 1 mg/ Magnesium Sulfate 2000 mg/ Multivitamins 10 ml/Sodium Chloride 1,014.2 ml @ 124.876 mls/hr Q24H IV 11/28/17 21:00 12/28/17 20:59 11/29/17 20:09 Heparin Sodium (Porcine) (Heparin 5000 units/ml) 5,000 units EVERY 12 HOURS SUBQ 11/28/17 21:00 12/28/17 20:59 Lorazepam (Ativan 2mg/ml 1ml) 1 mg Q4H PRN IV For Anxiety 11/29/17 16:00 12/06/17 15:59 11/29/17 18:50 Lorazepam (Ativan 2mg/ml 1ml) 2 mg Q1H PRN IV seizures 11/28/17 19:30 12/05/17 19:29 11/30/17 14:59 Morphine Sulfate (Morphine Sulfate) 1 mg Q4H PRN IVP For Pain 11/28/17 19:30 12/05/17 19:29 11/29/17 03:44 Multivitamins (Multivitamins) 1 tab DAILY ORAL 11/30/17 09:00 12/30/17 08:59 11/30/17 09:11 Ondansetron HCl (Zofran) 4 mg Q6H PRN IVP Nausea & Vomiting 11/28/17 19:30 12/28/17 19:29 11/29/17 03:44 Piperacillin Sod/ Tazobactam Sod 3.375 gm/Sodium Chloride 110 ml @ 27.5 mls/hr Q8HR IVPB 11/30/17 14:00 12/07/17 13:59 11/30/17 15:00 Polyethylene Glycol (Miralax) 17 gm HSPRN PRN ORAL Constipation 11/28/17 19:30 12/28/17 19:29 Thiamine HCl 100 mg/Sodium Chloride 56 ml @ 112 mls/hr Q24H IVPB 11/29/17 21:00 12/29/17 20:59 11/29/17 20:10 Zolpidem Tartrate (Ambien) 5 mg HSPRN PRN ORAL Insomnia 11/28/17 19:30 12/05/17 19:29 Allergies: Coded Allergies: No Known Allergies (Unverified , 11/28/17) ROS Limited/Unobtainable: No Constitutional: Reports: no symptoms HEENT: Reports: no symptoms Cardiovascular: Reports: no symptoms Respiratory: Reports: no symptoms Gastrointestinal/Abdominal: Reports: no symptoms Genitourinary: Reports: no symptoms Neurologic/Psychiatric: Reports: tremors Subjective 52 YO M admitted with alcohol withdrawal and anemia. Now scabies and low grade fever. Cover for Int Pj-Dr Silver. Objective Last Vital Signs Date Time Temp Pulse Resp B/P (MAP) Pulse Ox O2 Delivery O2 Flow Rate FiO2 11/30/17 12:00 100.2 77 18 138/86 99 Room Air 100.2 General Appearance: WD/WN, no apparent distress, alert EENT: PERRL/EOMI, normal ENT inspection Neck: non-tender, normal alignment, supple, normal inspection Cardiovascular: normal peripheral pulses, normal rate, regular rhythm, no gallop/murmur, no JVD Respiratory/Chest: chest wall non-tender, lungs clear, normal breath sounds, no respiratory distress, no accessory muscle use Abdomen: normal bowel sounds, non tender, soft, no organomegaly, no mass Extremities: normal range of motion, non-tender Neurologic: regulatory manager II-XII grossly normal, no motor/sensory deficits Skin: normal pigmentation, warm/dry Laboratory Tests Test 11/29/17 20:00 11/30/17 08:50 Stool Occult Blood Negative (NEGATIVE) White Blood Count 3.8 K/UL (4.8-10.8) L Red Blood Count 3.21 M/UL (4.70-6.10) L Hemoglobin 8.8 G/DL (14.2-18.0) L Hematocrit 26.7 % (42.0-52.0) L Mean Corpuscular Volume 83 FL (80-99) Mean Corpuscular Hemoglobin 27.5 PG (27.0-31.0) Mean Corpuscular Hemoglobin Concent 33.2 G/DL (32.0-36.0) Red Cell Distribution Width 17.5 % (11.6-14.8) H Platelet Count 51 K/UL (150-450) L Mean Platelet Volume 10.3 FL (6.5-10.1) H Neutrophils (%) (Auto) % (45.0-75.0) Lymphocytes (%) (Auto) % (20.0-45.0) Monocytes (%) (Auto) % (1.0-10.0) Eosinophils (%) (Auto) % (0.0-3.0) Basophils (%) (Auto) % (0.0-2.0) Differential Total Cells Counted 100 Neutrophils % (Manual) 62 % (45-75) Lymphocytes % (Manual) 13 % (20-45) L Monocytes % (Manual) 9 % (1-10) Eosinophils % (Manual) 14 % (0-3) H Basophils % (Manual) 0 % (0-2) Band Neutrophils 2 % (0-8) Platelet Estimate Decreased L Platelet Morphology Normal Polychromasia 1+ Hypochromasia 2+ Anisocytosis 1+ Reticulocyte Count 2.2 % (0.0-2.0) H Prothrombin Time 12.7 SEC (9.30-11.50) H Prothromb Time International Ratio 1.2 (0.9-1.1) H Activated Partial Thromboplast Time 30 SEC (23-33) Sodium Level 134 MMOL/L (136-145) L Potassium Level 3.6 MMOL/L (3.5-5.1) Chloride Level 102 MMOL/L (98-107) Carbon Dioxide Level 25 MMOL/L (21-32) Anion Gap 7 mmol/L (5-15) Blood Urea Nitrogen 5 mg/dL (7-18) L Creatinine 0.6 MG/DL (0.55-1.30) Estimat Glomerular Filtration Rate > 60 mL/min (>60) Glucose Level 101 MG/DL (74-106) Calcium Level 8.4 MG/DL (8.5-10.1) L Phosphorus Level 2.8 MG/DL (2.5-4.9) Magnesium Level 1.9 MG/DL (1.8-2.4) Iron Level 56 ug/dL (50-175) Total Iron Binding Capacity 329 ug/dL (250-450) Percent Iron Saturation 17 % (15-50) Unsaturated Iron Binding 273 ug/dL (112-346) Ferritin 20 NG/ML (8-388) Total Bilirubin 1.4 MG/DL (0.2-1.0) H Direct Bilirubin 0.6 MG/DL (0.0-0.3) H Aspartate Amino Transf (AST/SGOT) 58 U/L (15-37) H Alanine Aminotransferase (ALT/SGPT) 27 U/L (12-78) Alkaline Phosphatase 228 U/L (46-116) H Total Protein 8.3 G/DL (6.4-8.2) H Albumin 2.8 G/DL (3.4-5.0) L Globulin 5.5 g/dL Albumin/Globulin Ratio 0.5 (1.0-2.7) L Vitamin B12 Level 1139 PG/ML (193-986) H Folate 15.3 NG/ML (8.6-58.9) Thyroid Stimulating Hormone (TSH) 2.008 uiU/mL (0.358-3.740) Free Thyroxine 1.22 NG/DL (0.76-1.46) Intake and Output 11/29/17 11/30/17 19:00 07:00 Intake Total 1048.2 ml 240 ml Output Total 1300 ml 1650 ml Balance -251.8 ml -1410 ml Intake Oral 700 ml 240 ml IV Total 348.2 ml Output Urine Total 1300 ml 1650 ml # Bowel Movements 1 2 Assessment/Plan Problem List: (1) ALCOHOL DEPENDENCE WITH WITHDRAWAL DELIRIUM Assessment & Plan: Continue prn ativan. (2) Low grade fever Assessment & Plan: ?source? Await cultures. Start zosyn. (3) Anemia Assessment & Plan: ?Esophageal varicies? S/P transfusion 2 units PRBC. Anemia workup in progress. (4) Scabies Assessment & Plan: Topical elemite and oral permethrin. (5) Alcohol abuse (6) Generalized weakness Status: not improved ROSALES BROWN Nov 30, 2017 16:05
[2017-11-30] MEDS: chlordiazePOXIDE 25mg Cap ORAL PRN (17:06)
[2017-11-30 20:00] VITALS: BP 135/87
[2017-11-30] MEDS: Thiamine 100mg in D5W 55ml IVPB SCH (21:00)
[2017-11-30] MEDS: Folic Acid 1 MG, Magnesium Sulfate 2,000 MG, Multivitamin - 12 Injection 10 ML in NS w/... IV SCH (21:00)
[2017-11-30] MEDS ORDERED: LORazepam Inj 2mg/ml 1ml IV PRN (22:30)
[2017-11-30] MEDS ORDERED: Morphine Sulfate 4mg/ml Inj IVP PRN (23:30)
[2017-12-01] MEDS ORDERED: LORazepam Inj 2mg/ml 1ml IV PRN
[2017-12-01 00:41] VITALS: BP 148/72
[2017-12-01] MEDS ORDERED: chlordiazePOXIDE 25mg Cap ORAL PRN (01:30)
[2017-12-01] MEDS ORDERED: Mylanta II UD 30ml ORAL PRN (01:30)
[2017-12-01] MEDS ORDERED: Piperacillin/Tazobactam 3.375 GM in NS 110 ML IVPB SCH (06:00)
[2017-12-01] MEDS ORDERED: Heparin 5000 units/ml inj SUBQ SCH (09:00)
[2017-12-01] MEDS ORDERED: Miralax 17gm pkt ORAL PRN (19:30)
[2017-12-01] MEDS ORDERED: Zolpidem 5mg tab ORAL PRN (19:30)
[2017-12-01] MEDS ORDERED: Folic Acid 1 MG, Magnesium Sulfate 2,000 MG, Multivitamin - 12 Injection 10 ML in NS w/... IV SCH (21:00)
[2017-12-01] MEDS ORDERED: Thiamine HCl 100 MG in NS 55 ML IVPB SCH (21:00)
--- NOTE | 2017-12-02 13:55 | Discharge Summary ---
Discharge Summary Hospital Course Date of Admission Nov 28, 2017 at 18:29 Date of Discharge Dec 01, 2017 at 01:00 Admitting Diagnosis Severe Anemia, Alcohol Abuse HPI Chavo Farrell is a 52 year old male who was admitted on Nov 28, 2017 at 18:29 for Weakness, Eto[facility] Hospital Course [id number] Discharge Discharge Disposition Patient left Ct Albert NP Dec 02, 2017 13:55
--- NOTE | 2017-12-03 03:15 | Discharge Summary 2 SIG ---
DATE OF ADMISSION: 11/28/2017 DATE OF DISCHARGE: 12/01/2017 CONSULTANTS: 1. Stoney Doran M.D. 2. Brennen Danielson M.D. 3. Nas Robbins M.D. BRIEF HOSPITAL COURSE: The patient is a 52-year-old male, who presented to ED complaining "I was intoxicated." The patient apparently is homeless and was found by EMS lying on the street. He states he was weak and had nausea without vomiting. On evaluation at ED, he was found to have anemia, hemoglobin was 6.8. He was then admitted for GI bleed. Blood alcohol level was 425. He was given two units packed RBC blood transfusion and was given IV and p.o. hydration. He was started on banana bag and Ativan for possible alcohol withdrawal symptoms. His diet was eventually advanced. He was placed on contact isolation for possible scabies. He was given permethrin and ivermectin. He had low-grade fever and was started on Zosyn. Full treatment was not carried out as he left against medical advice. FINAL DIAGNOSES: 1. Alcohol dependence with withdrawal symptoms. 2. Low-grade fever, etiology unknown. 3. Acute anemia status post 2 units packed RBC blood transfusion. 4. Scabies. 5. Alcohol abuse. 6. Generalized weakness. 7. Noncompliance as the patient signed out against medical advice. 8. Pancytopenia. Zach Silver M.D. I have been assigned to dictate discharge summary on this account and I was not involved in the patient's management. Ct Rodriguez N.P. DR: JACQUES JOB#: [id number] CC: MILTON
== END 2017-12-01 01:00 | disposition left against medical advice (07) | DRG 660 ==
LOC: EDBD 14:04 → EMR 15:40 → EDBEDREQ 15:54 → 2E 18:29 → SDSOVERFLO 11-30 19:16 → 2E 11-30 19:18 → SDSOVERFLO 11-30 19:29 → 2E 11-30 19:30 → 4W 11-30 23:16
PROC: 30233N1 Transfusion of Nonautologous Red Blood Cells into Peripheral Vein, Percutaneous Approach (ICD-10-PCS; principal; 2017-11-28)
DX: D61.818 Other pancytopenia (principal); F10.121 Alcohol abuse with intoxication delirium; D64.9 Anemia, unspecified; B86 Scabies; R53.1 Weakness; R50.9 Fever, unspecified; Z91.19 Patient's noncompliance with other medical treatment and regimen; Z59.0 Homelessness
CPT/HCPCS: 36415; 70450; 71045; 80053; 80329; 82248; 82270; 82378; 82607; 82728; 82746; 83540; 83550; 83735; 84100; 84439; 84443; 85007; 85025; 85044; 85610; 85730; 86850; 86900; 86901; 86920; 93005; 99285; J2405; J8499